=== PATIENT | female | born 1975 | race Caucasian/White ===

== ENCOUNTER 2018-03-22 22:12 | Inpatient (IN) | payer OTHER ==
[~2018-03-22] VITALS: Ht 175.3 cm; Wt 96.8 kg
[2018-03-22 22:15] VITALS: Ht 175.3 cm; Wt 96.8 kg
[2018-03-22 23:03] LABS: BASOPHIL % 0.3 % (0-2); PLATELET COUNT 319 x10^3mcL (130-400); RED CELL DISTRIBUTION WIDTH 13.4 % (11.5-14.5)
[2018-03-22 23:10] LABS: CALCIUM 9.2 mg/dL (8.5-10.1); CHLORIDE SERUM 105 mmol/L (98-107); CREATININE SERUM 0.8 mg/dL (0.6-1.0); GFR1 > 60 mL/min; GLUCOSE SERUM 97 mg/dL (74-106); POTASSIUM SERUM 3.3 mmol/L (3.5-5.1); SODIUM SERUM 141 mmol/L (136-145)
[2018-03-22 23:15] LABS: ALBUMIN 3.8 g/dL (3.4-5.0); ALKALINE PHOSPHATASE 90 U/L (46-116); ALT/SGPT 84 U/L (14-59); AST/SGOT 37 U/L (15-37); BILIRUBIN TOTAL 0.2 mg/dL (0.20-1.00); TOTAL PROTEIN, SERUM 7.8 g/dL (6.4-8.2)
[2018-03-23 02:52] LABS: UA SPECIFIC GRAVITY 1.025 (1.005-1.035); microscopic required? YES; urine erythrocyte TRACE (NEGATIVE)
[2018-03-23 02:59] LABS: MAGNESIUM 1.8 mg/dL (1.8-2.4); PHOSPHOROUS 3.9 mg/dL (2.5-4.9)
[2018-03-23 03:00] LABS: AMPHETAMINE QUAL UR NONE DETECTED (See below)
[2018-03-23 03:01] LABS: CHOLESTEROL/HDL RATIO 4.3
[2018-03-23 03:08] VITALS: BP 120/76
[2018-03-23 03:08] LABS: T3 TOTAL 1.4 ng/mL
[2018-03-23 03:10] LABS: FREE T4 1.15 ng/dL (0.76-1.46); FREE THYROXINE INDEX 2.4 ug/dL (1.4-4.5); T4(THYROXINE) 7.7 ug/dL (4.7-13.3)
[2018-03-23 05:34] VITALS: BP 101/50
[2018-03-23 06:08] LABS: BASOPHIL % 0.5 % (0-2); PLATELET COUNT 262 x10^3mcL (130-400); RED CELL DISTRIBUTION WIDTH 13.5 % (11.5-14.5)
[2018-03-23 06:22] LABS: CALCIUM 8.8 mg/dL (8.5-10.1); CARBON DIOXIDE 25.9 mmol/L (21-32); CHLORIDE SERUM 108 mmol/L (98-107); CREATININE SERUM 0.7 mg/dL (0.6-1.0); GFR1 > 60 mL/min; GLUCOSE SERUM 90 mg/dL (74-106); POTASSIUM SERUM 3.4 mmol/L (3.5-5.1); SODIUM SERUM 142 mmol/L (136-145)
[2018-03-23 09:02] VITALS: BP 110/62
[2018-03-23 12:54] VITALS: BP 107/47
[2018-03-23 21:35] VITALS: BP 112/58
[2018-03-24 05:24] VITALS: BP 112/58
[2018-03-24 05:32] VITALS: BP 106/70
[2018-03-24 06:22] LABS: BASOPHIL % 0.6 % (0-2); PLATELET COUNT 284 x10^3mcL (130-400); RED CELL DISTRIBUTION WIDTH 13.6 % (11.5-14.5)
[2018-03-24 06:54] LABS: CALCIUM 8.9 mg/dL (8.5-10.1); CHLORIDE SERUM 107 mmol/L (98-107); CREATININE SERUM 0.8 mg/dL (0.6-1.0); GFR1 > 60 mL/min; GLUCOSE SERUM 90 mg/dL (74-106); PHOSPHOROUS 4.2 mg/dL (2.5-4.9); POTASSIUM SERUM 3.9 mmol/L (3.5-5.1); SODIUM SERUM 139 mmol/L (136-145)
[2018-03-24] MEDS ORDERED: ECO81 PO (08:48)
[2018-03-24] MEDS ORDERED: LIPI10 PO (08:49)
[2018-03-24 08:56] VITALS: BP 101/51
[2018-03-24 11:13] VITALS: BP 101/51
== END 2018-03-24 11:54 | disposition home or self-care (01) | DRG 206 ==
LOC: ED 22:12 → DU 03-23 01:23
PROVIDERS: Emergency Medicine; Family Medicine
DX: M94.0 Chondrocostal junction syndrome [Tietze] (principal); Z82.49 Family history of ischemic heart disease and other diseases of the circulatory system; Z90.49 Acquired absence of other specified parts of digestive tract; E87.6 Hypokalemia; Z53.29 Procedure and treatment not carried out because of patient's decision for other reasons; A08.4 Viral intestinal infection, unspecified; Z85.038 Personal history of other malignant neoplasm of large intestine; M54.12 Radiculopathy, cervical region; R31.9 Hematuria, unspecified
CPT/HCPCS: 83880; 84439; 85378; J1885; J2270; J7030; Q0092; Q9967